=== PATIENT | male | born 1950 | race Hispanic/Latino ===

== ENCOUNTER 2019-12-07 08:57 | Inpatient (IN) | payer OTHER, MEDICARE ==
[~2019-12-07] VITALS: Ht 157.5 cm; Wt 90.1 kg
[2019-12-07] MEDS ORDERED: TETANUS/DIPHTHERIA TOXOID [ADULT] 0.5 ML VIAL IM ONE (09:08)
[2019-12-07 10:16] LABS: BASOPHILS % (AUTO) 0.5 % (0.0-5.0); EOSINOPHILS % (AUTO) 2.7 % (0.0-8.0); HEMATOCRIT 39.3 % (42-54); LYMPHOCYTES % (AUTO) 11.7 % (21.0-51.0); MEAN CORPUSCULAR HEMOGLOBIN 31.1 pg (27.0-33.0); MEAN CORPUSCULAR HGB CONC 34.4 g/dL (32.0-36.0); MEAN CORPUSCULAR VOLUME 90.6 fL (79-99); MONOCYTES % (AUTO) 9.1 % (3.0-13.0); NEUTROPHILS % (AUTO) 75.3 % (40.0-77.0); PLATELET COUNT (AUTO) 199 K/uL (130-400); RED BLOOD CELL COUNT(AUTO) 4.34 MIL/uL (4.50-6.20); RED CELL DISTRIBUTION WIDTH 13.2 % (11.0-15.5); WHITE BLOOD COUNT (AUTO) 9.4 K/uL (4.8-10.8)
[2019-12-07 10:23] LABS: CREATININE 0.7 mg/dL (0.5-1.5); CRP QUANTITATIVE 38.5 mg/L (0.00-9.0); POTASSIUM 3.8 mmol/L (3.5-5.1)
[2019-12-07] MEDS ORDERED: CLINDAMYCIN 600 MG/D5% WATER 50 ML IV ONE ×2 (10:31→16:57)
[2019-12-07] MEDS ORDERED: CEFEPIME HCL 1 GM VIAL ONE (10:31)
[2019-12-07] MEDS ORDERED: SODIUM CHLORIDE 0.9% 50 ML IV ONE (10:32)
[2019-12-07] MEDS ORDERED: ONDANSETRON HCL 4 MG/2 ML VIAL IVP PRN (12:15)
[2019-12-07] MEDS: CEFEPIME HCL 2 GM VIAL IVP SCH (12:15)
[2019-12-07] MEDS ORDERED: DEXTROSE 50%-WATER 50 ML DISP.SYRIN IV PRN (12:15)
[2019-12-07] MEDS ORDERED: ACETAMINOPHEN 325 MG TAB PO PRN (12:15)
[2019-12-07] MEDS ORDERED: GLUCAGON 1MG KIT 1 MG ML IM PRN (12:15)
[2019-12-07 12:51] LABS: HEMOGLOBIN A1C 5.5 % (4.0-6.0)
[2019-12-07] MEDS: CLINDAMYCIN 600 MG/D5% WATER 50 ML IV SCH (18:15)
[2019-12-07] MEDS: INSULIN HUMULIN R 100 UNIT/ML 3ML SQ SCH (21:00)
[2019-12-07 22:00] VITALS: BP 115/59
--- NOTE | 2019-12-07 22:00 | NUR ---
Paged Dr HORTON to clarify time for I and D tomorrow.He states he will come in am to see pt first and prob around 9 or 10 am.Pricing Director Korin Lindquist rn made aware.
--- NOTE | 2019-12-07 23:53 | NUR ---
JODI saha DOCK PUMPER,pt c/o pain to his rt foot.
[2019-12-08] VITALS (18 sets, daily range): BP systolic 94–153; BP diastolic 48–73
[2019-12-08] MEDS: CLINDAMYCIN 600 MG/D5% WATER 50 ML IV SCH ×3 (00:38→12:09)
[2019-12-08] MEDS: CEFEPIME HCL 2 GM VIAL IVP SCH ×2 (00:38→21:22)
--- NOTE | 2019-12-08 00:54 | NUR ---
FF-UP Pt resting in bed,denies pain this time.
[2019-12-08 03:58] LABS: BASOPHILS % (AUTO) 0.5 % (0.0-5.0); EOSINOPHILS % (AUTO) 2.4 % (0.0-8.0); LYMPHOCYTES % (AUTO) 13.8 % (21.0-51.0); MEAN CORPUSCULAR HEMOGLOBIN 30.5 pg (27.0-33.0); MEAN CORPUSCULAR HGB CONC 33.6 g/dL (32.0-36.0); MEAN CORPUSCULAR VOLUME 90.7 fL (79-99); MONOCYTES % (AUTO) 8.5 % (3.0-13.0); NEUTROPHILS % (AUTO) 74.3 % (40.0-77.0); PLATELET COUNT (AUTO) 187 K/uL (130-400); RED CELL DISTRIBUTION WIDTH 13.3 % (11.0-15.5); WHITE BLOOD COUNT (AUTO) 8.6 K/uL (4.8-10.8)
[2019-12-08 04:13] LABS: ALBUMIN 3.4 g/dL (3.5-5.0); BILIRUBIN,TOTAL 0.7 mg/dL (0.2-1.0); CREATININE 0.7 mg/dL (0.5-1.5); TOTAL PROTEIN, SERUM 6.7 g/dL (6.0-8.3)
[2019-12-08] MEDS: INSULIN HUMULIN R 100 UNIT/ML 3ML SQ SCH ×2 (05:22→10:43)
[2019-12-08] MEDS ORDERED: SODIUM CHLORIDE 0.9% 1000ML 1,000 ML IV ONE (08:20)
[2019-12-08] MEDS ORDERED: MIDAZOLAM HCL 1 MG/ML 2ML VIAL ONE (08:37)
[2019-12-08] MEDS ORDERED: FENTANYL CITRATE PF 50 MCG/1 ML 2ML VIAL ONE (08:38)
[2019-12-08] MEDS ORDERED: ONDANSETRON HCL 4 MG/2 ML VIAL ONE (08:38)
[2019-12-08] MEDS ORDERED: PROPOFOL 10 MG/ML 20ML VIAL IV ONE (08:38)
[2019-12-08] MEDS ORDERED: BUPIVACAINE/PF 0.5% 10ML VIAL ONE (08:42)
[2019-12-08] MEDS ORDERED: LIDOCAINE HCL 1% MDV 50ML VIAL ONE (08:42)
[2019-12-08] MEDS: ENOXAPARIN SODIUM 30 MG/0.3 ML SQ SCH (09:00)
--- NOTE | 2019-12-08 09:55 | NUR ---
S/P II&D REPORT RECEIVED @ [id number] PATIENT Back in room on RA, left foot dressing dry and intact and patient denies pain at this time, elevated foot of bed. I&D done by DR HORTON , REPORTED THAT PATIENT HAS ABD WITH PACKING AND STARTING TOMORROW WET AND DRY DRESSING CHANGES DAILY, EBL 5 VS ; T 97.2, P 74, R 23, B/P 101/52 O2 SAT 95% ON RA WILL CONTINUE TO MONITOR.
--- NOTE | 2019-12-08 11:00 | NUR ---
PHONE NUMBER ON FACE SHEET NOT IN SERVICE, CM TO FOLLOW FOR IA
--- NOTE | 2019-12-08 11:17 | NUR ---
USES CPAP AT HOME CALLING BROTHER TO BRING IN HIS Addendum: 12/08/19 at 1117 by SHERON SETH RN RN Amended: Links added.
[2019-12-08] MEDS ORDERED: VANCOMYCIN PROTOCOL PER PHARMACY IV SCH (12:45)
[2019-12-08] MEDS: KETOROLAC TROMETHAMINE 15MG/ML IV PRN ×2 (14:04→21:29)
[2019-12-08] MEDS ORDERED: COMPOUND IV REFRIGERATED 1 EACH IVSOLN MISC PRN (14:15)
[2019-12-08] MEDS ORDERED: VANCOMYCIN 2 GM in SODIUM CHLORIDE 0.9% 500ML 500 ML IV ONE (15:00)
--- NOTE | 2019-12-08 16:25 | NUR ---
NUTRITION EDUCATION Pt denies need for Diabetes Nutrition education secondary to it being provided at the [facility]. Pt agrees to receive nutrition handouts. DAVION placed handouts in Pt chart. Spoke with Pt via phone. DAVION encouraged patient to notify as questions or concerns arise. Pt verbalized understanding. Addendum: 12/08/19 at [address] RD Amended: Links added.
--- NOTE | 2019-12-08 16:28 | NUR ---
RD NOTIFICATION Pt admitted with Cellulitis to R-Foot. Pt tolerating 75gm CCD, fair to good PO intake at 75%-100% as per Pt. Pt denies any GI distress or food allergies. Pt with Obesity Class II. Monitored labs: CRP 38.50, Alb 3.4. Pt assessed for nutrition education. Recommend continue 75gm CCD Recommend Donal BID, 500mg Vitamin C (BID) secondary to cellulitis. RD to continue to monitor. Please notify as additional nutrition concerns arise. Thank you.
[2019-12-09] VITALS (7 sets, daily range): BP systolic 95–119; BP diastolic 58–74
[2019-12-09 05:36] LABS: BASOPHILS % (AUTO) 0.4 % (0.0-5.0); EOSINOPHILS % (AUTO) 2.7 % (0.0-8.0); HEMATOCRIT 38.2 % (42-54); LYMPHOCYTES % (AUTO) 14.7 % (21.0-51.0); MEAN CORPUSCULAR HEMOGLOBIN 30.3 pg (27.0-33.0); MEAN CORPUSCULAR HGB CONC 33.2 g/dL (32.0-36.0); MEAN CORPUSCULAR VOLUME 91.2 fL (79-99); MONOCYTES % (AUTO) 7.8 % (3.0-13.0); PLATELET COUNT (AUTO) 210 K/uL (130-400); RED BLOOD CELL COUNT(AUTO) 4.19 MIL/uL (4.50-6.20); RED CELL DISTRIBUTION WIDTH 13.3 % (11.0-15.5); WHITE BLOOD COUNT (AUTO) 7.4 K/uL (4.8-10.8)
[2019-12-09] MEDS: VANCOMYCIN 1.25 GM in SODIUM CHLORIDE 0.9% 250 ML IV SCH ×2 (05:44→18:03)
[2019-12-09 05:57] LABS: CREATININE 0.7 mg/dL (0.5-1.5)
[2019-12-09] MEDS: CEFEPIME HCL 2 GM VIAL IVP SCH ×2 (08:50→21:35)
[2019-12-09] MEDS: ENOXAPARIN SODIUM 30 MG/0.3 ML SQ SCH (09:04)
[2019-12-09] MEDS ORDERED: HYDROCODONE/ACETAMINOPHEN 5/325 MG TAB PO PRN (10:00)
[2019-12-09] MEDS: MORPHINE SULFATE 2 MG/ML 1ML SYG IVP PRN ×2 (11:13→17:34)
--- NOTE | 2019-12-09 13:00 | NUR ---
DCP CM met with pt discussed dc plans. Pt is independent prior to admission, lives at home alone, brother and sister lives close by. Pt has a rolling walker, walker w/wheels, cane, shower chair, cpap. Denies any other equipments/services. Feels safe to go back home, brother and sister able to assist with transportation and needs as necessary. Discussed MD recommendations for LTAC as pt will need wound care as well as bx iv and PT. PT at this time declined, verbalized would like to speak to brother and sister first, per pt will call CM if he changes his mind. Pt given CM # . DC plan to home vs LTAC. CM to continue to follow up. Addendum: 12/09/19 at 1607 by MELINDA RIOS LVN CM Amended: Links added.
[2019-12-10 03:51] VITALS: BP 108/66
[2019-12-10 05:08] LABS: BASOPHILS % (AUTO) 0.7 % (0.0-5.0); HEMATOCRIT 41.8 % (42-54); LYMPHOCYTES % (AUTO) 17.6 % (21.0-51.0); MEAN CORPUSCULAR HEMOGLOBIN 30.9 pg (27.0-33.0); MEAN CORPUSCULAR HGB CONC 34.2 g/dL (32.0-36.0); MEAN CORPUSCULAR VOLUME 90.3 fL (79-99); MONOCYTES % (AUTO) 8.2 % (3.0-13.0); NEUTROPHILS % (AUTO) 68.1 % (40.0-77.0); PLATELET COUNT (AUTO) 208 K/uL (130-400); RED BLOOD CELL COUNT(AUTO) 4.63 MIL/uL (4.50-6.20); RED CELL DISTRIBUTION WIDTH 13.4 % (11.0-15.5); WHITE BLOOD COUNT (AUTO) 5.6 K/uL (4.8-10.8)
[2019-12-10 05:13] LABS: CREATININE 0.6 mg/dL (0.5-1.5); POTASSIUM 3.8 mmol/L (3.5-5.1)
[2019-12-10] MEDS: VANCOMYCIN 1.25 GM in SODIUM CHLORIDE 0.9% 250 ML IV SCH ×3 (05:50→22:00)
[2019-12-10 08:00] VITALS: BP 106/68
[2019-12-10] MEDS: ENOXAPARIN SODIUM 30 MG/0.3 ML SQ SCH (09:37)
[2019-12-10] MEDS: CEFEPIME HCL 2 GM VIAL IVP SCH ×2 (09:37→21:19)
--- NOTE | 2019-12-10 11:38 | NUR ---
cm note spoke to pt and states is in agreement for [facility] referral, states he will update his family on plan for [facility]. choice letter obtained, and referral made to [facility], spoke to Chitra Alfaro [facility] and [facility] will evaluate pt and let cm know of outcome.
[2019-12-10 12:00] VITALS: BP 115/71
[2019-12-10 16:00] VITALS: BP 105/68
[2019-12-10 20:00] VITALS: BP 137/81
--- NOTE | 2019-12-10 20:00 | NUR ---
physical assessment performed at 2000
[2019-12-10] MEDS: KETOROLAC TROMETHAMINE 15MG/ML IV PRN (21:19)
[2019-12-11] VITALS (7 sets, daily range): BP systolic 110–126; BP diastolic 65–78
[2019-12-11 04:43] LABS: BASOPHILS % (AUTO) 0.6 % (0.0-5.0); EOSINOPHILS % (AUTO) 5.5 % (0.0-8.0); HEMATOCRIT 37.9 % (42-54); LYMPHOCYTES % (AUTO) 17.5 % (21.0-51.0); MEAN CORPUSCULAR HEMOGLOBIN 30.6 pg (27.0-33.0); MEAN CORPUSCULAR HGB CONC 33.8 g/dL (32.0-36.0); MEAN CORPUSCULAR VOLUME 90.7 fL (79-99); MONOCYTES % (AUTO) 9.5 % (3.0-13.0); NEUTROPHILS % (AUTO) 66.4 % (40.0-77.0); PLATELET COUNT (AUTO) 234 K/uL (130-400); RED BLOOD CELL COUNT(AUTO) 4.18 MIL/uL (4.50-6.20); RED CELL DISTRIBUTION WIDTH 13.2 % (11.0-15.5); WHITE BLOOD COUNT (AUTO) 6.4 K/uL (4.8-10.8)
[2019-12-11 05:07] LABS: ALBUMIN 3.2 g/dL (3.5-5.0); BILIRUBIN,TOTAL 0.6 mg/dL (0.2-1.0); CREATININE 0.7 mg/dL (0.5-1.5); POTASSIUM 3.7 mmol/L (3.5-5.1); TOTAL PROTEIN, SERUM 6.5 g/dL (6.0-8.3)
[2019-12-11] MEDS: KETOROLAC TROMETHAMINE 15MG/ML IV PRN ×2 (06:25→21:32)
[2019-12-11] MEDS: VANCOMYCIN 1.25 GM in SODIUM CHLORIDE 0.9% 250 ML IV SCH ×2 (06:25→15:52)
--- NOTE | 2019-12-11 06:53 | NUR ---
dressing change done as md ordered surgical site with no obvious signs of infection no drainage noted, no foul smell pt tolerated procedure well
[2019-12-11] MEDS: CEFEPIME HCL 2 GM VIAL IVP SCH ×2 (08:38→21:33)
[2019-12-11] MEDS: ENOXAPARIN SODIUM 30 MG/0.3 ML SQ SCH (08:38)
[2019-12-11] MEDS: MORPHINE SULFATE 2 MG/ML 1ML SYG IVP PRN ×2 (15:59→16:01)
[2019-12-11] MEDS: VANCOMYCIN 1.5 GM in SODIUM CHLORIDE 0.9% 250 ML IV SCH (21:33)
[2019-12-12 04:00] VITALS: BP 118/71
[2019-12-12 04:11] LABS: BASOPHILS % (AUTO) 0.7 % (0.0-5.0); EOSINOPHILS % (AUTO) 4.1 % (0.0-8.0); HEMATOCRIT 37.5 % (42-54); LYMPHOCYTES % (AUTO) 17.6 % (21.0-51.0); MEAN CORPUSCULAR HEMOGLOBIN 30.7 pg (27.0-33.0); MEAN CORPUSCULAR HGB CONC 34.4 g/dL (32.0-36.0); MEAN CORPUSCULAR VOLUME 89.3 fL (79-99); MONOCYTES % (AUTO) 8.8 % (3.0-13.0); NEUTROPHILS % (AUTO) 68.3 % (40.0-77.0); PLATELET COUNT (AUTO) 226 K/uL (130-400); RED CELL DISTRIBUTION WIDTH 13.2 % (11.0-15.5); WHITE BLOOD COUNT (AUTO) 6.1 K/uL (4.8-10.8)
[2019-12-12 04:28] LABS: CREATININE 0.6 mg/dL (0.5-1.5); POTASSIUM 3.6 mmol/L (3.5-5.1)
[2019-12-12] MEDS ORDERED: LACTULOSE 20 GM/30 ML UDCUP ONE (06:42)
--- NOTE | 2019-12-12 06:43 | NUR ---
DRESSING DONE MD ORDERED
[2019-12-12] MEDS: KETOROLAC TROMETHAMINE 15MG/ML IV PRN (06:44)
[2019-12-12] MEDS: VANCOMYCIN 1.5 GM in SODIUM CHLORIDE 0.9% 250 ML IV SCH ×3 (06:44→21:45)
[2019-12-12] MEDS ORDERED: LACTULOSE 20 GM/30 ML UDCUP PO SCH (06:45)
[2019-12-12 08:00] VITALS: BP 113/83
[2019-12-12] MEDS: CEFEPIME HCL 2 GM VIAL IVP SCH ×2 (09:31→21:45)
[2019-12-12] MEDS: ENOXAPARIN SODIUM 30 MG/0.3 ML SQ SCH (09:32)
[2019-12-12 12:00] VITALS: BP 113/64
[2019-12-12 16:00] VITALS: BP 114/67
[2019-12-12 20:00] VITALS: BP 121/62
[2019-12-13] VITALS (7 sets, daily range): BP systolic 118–137; BP diastolic 57–79
[2019-12-13 04:50] LABS: BASOPHILS % (AUTO) 0.6 % (0.0-5.0); EOSINOPHILS % (AUTO) 3.5 % (0.0-8.0); HEMATOCRIT 38.3 % (42-54); LYMPHOCYTES % (AUTO) 12.3 % (21.0-51.0); MEAN CORPUSCULAR HEMOGLOBIN 30.4 pg (27.0-33.0); MEAN CORPUSCULAR HGB CONC 33.7 g/dL (32.0-36.0); MEAN CORPUSCULAR VOLUME 90.1 fL (79-99); NEUTROPHILS % (AUTO) 75.2 % (40.0-77.0); PLATELET COUNT (AUTO) 232 K/uL (130-400); RED BLOOD CELL COUNT(AUTO) 4.25 MIL/uL (4.50-6.20); RED CELL DISTRIBUTION WIDTH 13.2 % (11.0-15.5); WHITE BLOOD COUNT (AUTO) 7.8 K/uL (4.8-10.8)
[2019-12-13 05:05] LABS: CREATININE 0.7 mg/dL (0.5-1.5); POTASSIUM 3.6 mmol/L (3.5-5.1)
--- NOTE | 2019-12-13 06:42 | NUR ---
DRESSING CHANGE DONE MD ORDERED
--- NOTE | 2019-12-13 06:43 | NUR ---
PHARMACY AWARE OF THIAGOO THROUGH
[2019-12-13] MEDS: MORPHINE SULFATE 2 MG/ML 1ML SYG IVP PRN (06:50)
[2019-12-13] MEDS ORDERED: IBUPROFEN 400 MG TABLET PO PRN (08:00)
[2019-12-13] MEDS: VANCOMYCIN 1.5 GM in SODIUM CHLORIDE 0.9% 250 ML IV SCH ×2 (10:00→17:00)
[2019-12-13] MEDS: CEFEPIME HCL 2 GM VIAL IVP SCH ×2 (10:06→21:38)
[2019-12-13] MEDS: ENOXAPARIN SODIUM 30 MG/0.3 ML SQ SCH (10:06)
[2019-12-14] MEDS: VANCOMYCIN 1.5 GM in SODIUM CHLORIDE 0.9% 250 ML IV SCH ×2 (01:01→21:01)
[2019-12-14 04:00] VITALS: BP 106/65
[2019-12-14] MEDS: MORPHINE SULFATE 2 MG/ML 1ML SYG IVP PRN (07:08)
--- NOTE | 2019-12-14 07:17 | NUR ---
DRESSING CHANGE TO RIGHT FOOT DONE PER MD ORDERS. PT TOLERATED WELL. NO S/S OF INFECTION.
[2019-12-14 07:30] VITALS: BP 109/73
--- NOTE | 2019-12-14 08:30 | NUR ---
PT AAO X 3 REVIEW PLAN OF CARE / PT DRSG TO HIS RIGHT FOOT. IN PLACE PER REPORT PT DRSG WAS CHANGED . PER DR. HORTON DRSG ORDERS ASSESSMENT PT . STATED THAT HIS RT UPPER ARM . WAS HURTING PER ASESSMENT PT STATED THAT HE HAD A IV. TO HIS LEFT UPPER ARM AND WAS TAKEN OFF, AND RESTART ONE TO HIS RT FOREARM . SITE TO HIS LEFT UPPER ARM WAS HOT . HAD A HARD SPOT , AND REDNESS TO SITE , PT HAS A SM DRSG OVER SITE. REVIEW . ASSESS HIS LEFT RADIAL PULSE STRONG WITH GOOD CAPILLARIES REFILLS NOTED . WILL DIRECT ASSESSMENT TO DR. GOLD FOR THE HOSPTIALIST .
[2019-12-14] MEDS: CEFEPIME HCL 2 GM VIAL IVP SCH ×2 (09:19→20:58)
[2019-12-14] MEDS: ENOXAPARIN SODIUM 30 MG/0.3 ML SQ SCH (09:24)
--- NOTE | 2019-12-14 10:30 | NUR ---
HOSPITALIST . Martin. CALLED AND UPDATE OF PT . LEFT ARM. SITE WILLIAN SALAS . RESOLUTION SPECIALIST. WILL COME TO ASSESS PT . LEFT ARMS AND PLACE ORDERS TO FOLLOW . CARE.
[2019-12-14 11:00] VITALS: BP 118/65
[2019-12-14] MEDS ORDERED: VANCOMYCIN 1.5 GM in SODIUM CHLORIDE 0.9% 250 ML IV SCH (11:00)
--- NOTE | 2019-12-14 15:30 | NUR ---
ULTRA SOUND OF THE LEFT ARM, I PENDING . AND DOPPLER STUDY WAS ALSO ORDER TO HIS LEFT ARM.`
[2019-12-14 16:00] VITALS: BP 109/70
--- NOTE | 2019-12-14 16:51 | NUR ---
WAITING ON AUTH FROM [place] FOR [facility] Addendum: 12/14/19 at 1652 by VAUGHN CHAMBERS RN CM Amended: Links added.
[2019-12-14 20:00] VITALS: BP 118/70
[2019-12-14 23:38] VITALS: BP 155/61
[2019-12-15 04:00] VITALS: BP 136/70
[2019-12-15] MEDS: VANCOMYCIN 1.5 GM in SODIUM CHLORIDE 0.9% 250 ML IV SCH ×3 (05:01→21:58)
--- NOTE | 2019-12-15 06:51 | NUR ---
PIV TO PATRICIA 22 G INFILTRATED. PIV REMOVED WITH CATHETER INTACT. NEW 20G PIV INSERTED TO RIGHT HAND. PT TOLERATED WELL.
--- NOTE | 2019-12-15 06:52 | NUR ---
DRESSING TO RIGHT FOOT [place] PER MD ORDERS.
[2019-12-15 07:30] VITALS: BP 111/56
[2019-12-15] MEDS: CEFEPIME HCL 2 GM VIAL IVP SCH ×2 (11:10→21:58)
[2019-12-15] MEDS: ENOXAPARIN SODIUM 30 MG/0.3 ML SQ SCH (11:11)
[2019-12-15 11:14] VITALS: BP 115/69
[2019-12-15] MEDS: MORPHINE SULFATE 2 MG/ML 1ML SYG IVP PRN (12:28)
[2019-12-15 16:00] VITALS: BP 101/52
[2019-12-15 21:08] VITALS: BP 113/61
[2019-12-16 00:06] VITALS: BP 144/90
[2019-12-16] MEDS: VANCOMYCIN 1.5 GM in SODIUM CHLORIDE 0.9% 250 ML IV SCH ×3 (04:00→21:44)
[2019-12-16 04:06] VITALS: BP 123/67
[2019-12-16 04:58] LABS: BASOPHILS % (AUTO) 0.6 % (0.0-5.0); EOSINOPHILS % (AUTO) 3.3 % (0.0-8.0); HEMATOCRIT 38.1 % (42-54); LYMPHOCYTES % (AUTO) 15.1 % (21.0-51.0); MEAN CORPUSCULAR HEMOGLOBIN 30.4 pg (27.0-33.0); MEAN CORPUSCULAR HGB CONC 33.9 g/dL (32.0-36.0); MEAN CORPUSCULAR VOLUME 89.9 fL (79-99); MONOCYTES % (AUTO) 8.3 % (3.0-13.0); NEUTROPHILS % (AUTO) 72.1 % (40.0-77.0); PLATELET COUNT (AUTO) 248 K/uL (130-400); RED BLOOD CELL COUNT(AUTO) 4.24 MIL/uL (4.50-6.20); RED CELL DISTRIBUTION WIDTH 12.9 % (11.0-15.5); WHITE BLOOD COUNT (AUTO) 6.9 K/uL (4.8-10.8)
[2019-12-16 05:29] LABS: CREATININE 0.6 mg/dL (0.5-1.5); POTASSIUM 3.6 mmol/L (3.5-5.1)
[2019-12-16 08:00] VITALS: BP 131/77
[2019-12-16] MEDS: CEFEPIME HCL 2 GM VIAL IVP SCH ×2 (10:19→21:44)
[2019-12-16] MEDS: ENOXAPARIN SODIUM 30 MG/0.3 ML SQ SCH (10:20)
[2019-12-16 12:18] VITALS: BP 120/60
[2019-12-16 12:28] LABS: INR 0.92 (0.85-1.15)
--- NOTE | 2019-12-16 17:06 | NUR ---
WINSOME KINGSLEY. ADVISED DR. Rock Navarro STATES WILL GIVE ABX ORDERS TOMORROW NEED HOME HEALTH ORDERS. WILL CONTACT [facility] FOR ORDERS. Addendum: 12/16/19 at 1708 by VAUGHN CHAMBERS RN CM Amended: Links added.
[2019-12-16] MEDS ORDERED: FERROUS SULFATE 325 MG TABLET.DR PO SCH (17:30)
--- NOTE | 2019-12-16 17:30 | NUR ---
AT BEDSIDE WITH DR. RUSSELL, DISCUSSING D/C PLANS- HOME WITH HOME HEALTH WASH WOUND WITH NS, APPLY HYDROFERA BLUE INTO WOUND, COVER WITH STERILE GAUZE/KERLIX MAY WEIGH BEAR WITH SURGICAL SHOE SAW RIGHT FOOT PLANTAR WOUND WITH DR. HORTON, WHILE HE WAS CHANGING DRESSING. APPEARS TO BE 3 CM X1 CM X2 CM DEEP---(MEASUREMENTS ARE APPROXIMATE.) [facility] WITH ORDER FROM [facility]
[2019-12-16 18:19] VITALS: BP 122/57
[2019-12-16 19:46] VITALS: BP 124/56
[2019-12-17 00:04] VITALS: BP 111/75
[2019-12-17 04:04] VITALS: BP 101/67
[2019-12-17 04:50] LABS: BASOPHILS % (AUTO) 0.6 % (0.0-5.0); EOSINOPHILS % (AUTO) 2.9 % (0.0-8.0); HEMATOCRIT 39.4 % (42-54); MEAN CORPUSCULAR HEMOGLOBIN 30.5 pg (27.0-33.0); MEAN CORPUSCULAR HGB CONC 34.3 g/dL (32.0-36.0); MEAN CORPUSCULAR VOLUME 89.1 fL (79-99); MONOCYTES % (AUTO) 9.6 % (3.0-13.0); NEUTROPHILS % (AUTO) 69.5 % (40.0-77.0); PLATELET COUNT (AUTO) 251 K/uL (130-400); RED BLOOD CELL COUNT(AUTO) 4.42 MIL/uL (4.50-6.20); RED CELL DISTRIBUTION WIDTH 13.1 % (11.0-15.5); WHITE BLOOD COUNT (AUTO) 6.9 K/uL (4.8-10.8)
[2019-12-17 05:14] LABS: CREATININE 0.6 mg/dL (0.5-1.5); POTASSIUM 3.7 mmol/L (3.5-5.1)
[2019-12-17] MEDS: VANCOMYCIN 1.5 GM in SODIUM CHLORIDE 0.9% 250 ML IV SCH (06:04)
[2019-12-17 08:00] VITALS: BP 89/54
[2019-12-17] MEDS ORDERED: FERROUS SULFATE 325 MG TABLET.DR PO SCH (09:00)
[2019-12-17 12:00] VITALS: BP 127/86
--- NOTE | 2019-12-17 15:07 | NUR ---
DISCHARGE PLANNING- EVERYTHING SENT TO [place] FOR HOME HEALTH SET UP. CALLS X 2 TO [facility] NO ANSWER CONTACTED [facility] RE ORDER FOR FOLLOW UP- ADVISED THAT PATIENT WILL NEED TO GO TO [place] CLINIC FIRST FOR REFERRAL APPROVAL SPOKE TO PATIENT- HE WATCH DR. HORTON DO THE WOUND CARE YESTERDAY,STATES HE CAN DO IT. STATES FEELS CONFIDENT. SUPPLIES GATHERED FOR DC HOME, PLAN- DO DSG CHANGE HERE, PT WILL NEED TO DO DRESSING ON FRIDAY, THEN FRIDAY OR HOME HEALTH WITH BE AUTHORIZED. ALSO NEED TO MAKE APPOINTMENT W [place] [facility] FOR EARLY NEXT WEEK. VOUCHER FOR PO MEDS TO BE GIVEN TO PATIENT Addendum: 12/17/19 at 1731 by VAUGHN CHAMBERS RN CM Amended: Links added.
[2019-12-17 16:00] VITALS: BP 127/85
[2019-12-17] MEDS ORDERED: IBUP-2076 PO (16:39)
[2019-12-17] MEDS ORDERED: FERR324T4 PO (16:39)
--- NOTE | 2019-12-17 16:39 | NUR ---
RD FOLLOW UP Pt continues to tolerate diet order. No report of GI distress. PO intake at 100%. Nutrition education previously provided. Pt with IV vanco. Right foot ulcer requiring additional protein. Recommend Donal BID, 1000mg Vitamin C (QD), 220mg Zinc (QD) for wound healing support. RD to continue to monitor. Please notify as additional nutrition concerns arise. Thank you.
--- NOTE | 2019-12-17 16:59 | NUR ---
discharge instructions discussed with pt voices understanding understands to call [facility] and make appointment for follow [facility] Friday
== END 2019-12-17 18:52 | disposition home health service (06) | DRG 580 ==
LOC: EDH 08:57 → EDHIP 12:01 → OBSVTOIN 12:01 → 3DH 22:08
PROVIDERS: ADMIT Hospitalist; ATTEND Hospitalist
PROC: 3E0234Z Introduction of Serum, Toxoid and Vaccine into Muscle, Percutaneous Approach (ICD-10-PCS; 2019-12-07)
PROC: 0J9Q0ZZ Drainage of Right Foot Subcutaneous Tissue and Fascia, Open Approach (ICD-10-PCS; principal; 2019-12-08 08:40)
PROC: 5A09357 Assistance with Respiratory Ventilation, Less than 24 Consecutive Hours, Continuous Positive Airway Pressure (ICD-10-PCS; 2019-12-09)
PROC: 5A09357 Assistance with Respiratory Ventilation, Less than 24 Consecutive Hours, Continuous Positive Airway Pressure (ICD-10-PCS; 2019-12-10)
PROC: 5A09357 Assistance with Respiratory Ventilation, Less than 24 Consecutive Hours, Continuous Positive Airway Pressure (ICD-10-PCS; 2019-12-12)
PROC: 5A09357 Assistance with Respiratory Ventilation, Less than 24 Consecutive Hours, Continuous Positive Airway Pressure (ICD-10-PCS; 2019-12-13)
PROC: 5A09357 Assistance with Respiratory Ventilation, Less than 24 Consecutive Hours, Continuous Positive Airway Pressure (ICD-10-PCS; 2019-12-15)
PROC: 5A09357 Assistance with Respiratory Ventilation, Less than 24 Consecutive Hours, Continuous Positive Airway Pressure (ICD-10-PCS; 2019-12-16)
PROC: 5A09357 Assistance with Respiratory Ventilation, Less than 24 Consecutive Hours, Continuous Positive Airway Pressure (ICD-10-PCS; 2019-12-17)
DX: S91.331A Puncture wound without foreign body, right foot, initial encounter (principal); L03.115 Cellulitis of right lower limb; L02.611 Cutaneous abscess of right foot; E11.621 Type 2 diabetes mellitus with foot ulcer; I10 Essential (primary) hypertension; D64.9 Anemia, unspecified; G47.30 Sleep apnea, unspecified; L97.519 Non-pressure chronic ulcer of other part of right foot with unspecified severity; R59.0 Localized enlarged lymph nodes; E03.9 Hypothyroidism, unspecified; R53.81 Other malaise; E66.9 Obesity, unspecified; Z68.36 Body mass index [BMI] 36.0-36.9, adult; W45.0XXA Nail entering through skin, initial encounter; Y93.01 Activity, walking, marching and hiking; Y92.098 Other place in other non-institutional residence as the place of occurrence of the external cause; Y99.8 Other external cause status; Z79.4 Long term (current) use of insulin; Z88.0 Allergy status to penicillin; Z23 Encounter for immunization; Z83.3 Family history of diabetes mellitus
CPT/HCPCS: 36415; 73630; 80048; 80053; 80202; 82948; 83036; 85025; 85610; 86140; 87070; 87076; 87205; 90714; 93971; G0378; J0692; J1650; J1885; J2250; J2405; J2704; J3010; J3370; J3490; J7030; J7040; J7050

== ENCOUNTER → 2019-12-29 | Outpatient (CLI) | payer OTHER ==
[~2019-12-29] MED LIST: FERR324T4 PO; IBUP-2076 PO
== END | disposition home or self-care (01) ==
LOC: WHH 10:30
PROVIDERS: ATTEND Podiatrist Foot & Ankle Surgery
DX: E11.621 Type 2 diabetes mellitus with foot ulcer (principal); L97.512 Non-pressure chronic ulcer of other part of right foot with fat layer exposed; E11.51 Type 2 diabetes mellitus with diabetic peripheral angiopathy without gangrene; E11.42 Type 2 diabetes mellitus with diabetic polyneuropathy; I10 Essential (primary) hypertension; E03.9 Hypothyroidism, unspecified; E66.9 Obesity, unspecified; G47.30 Sleep apnea, unspecified; M54.2 Cervicalgia; M19.90 Unspecified osteoarthritis, unspecified site; D64.9 Anemia, unspecified; Z88.0 Allergy status to penicillin; Z79.4 Long term (current) use of insulin
CPT/HCPCS: A6209; G0463

== ENCOUNTER → 2020-01-19 | Outpatient (CLI) | payer OTHER ==
[~2020-01-19] MED LIST changes: +LIDOCAINE HCL 2% JELLY 5 ML TP ONE
== END | disposition home or self-care (01) ==
LOC: WHH 11:00
PROVIDERS: ATTEND Podiatrist Foot & Ankle Surgery
DX: T81.89XD Other complications of procedures, not elsewhere classified, subsequent encounter (principal); E11.621 Type 2 diabetes mellitus with foot ulcer; L97.512 Non-pressure chronic ulcer of other part of right foot with fat layer exposed; E11.51 Type 2 diabetes mellitus with diabetic peripheral angiopathy without gangrene; E11.42 Type 2 diabetes mellitus with diabetic polyneuropathy; I10 Essential (primary) hypertension; E03.9 Hypothyroidism, unspecified; E66.9 Obesity, unspecified; G47.30 Sleep apnea, unspecified; M54.2 Cervicalgia; M19.90 Unspecified osteoarthritis, unspecified site; D64.9 Anemia, unspecified; Z88.0 Allergy status to penicillin; Z79.4 Long term (current) use of insulin; Y83.8 Other surgical procedures as the cause of abnormal reaction of the patient, or of later complication, without mention of misadventure at the time of the procedure
CPT/HCPCS: 11042; A6207

== ENCOUNTER → 2020-01-26 | Outpatient (CLI) | payer OTHER ==
[~2020-01-26] MED LIST changes: -LIDOCAINE HCL 2% JELLY 5 ML TP ONE
== END | disposition home or self-care (01) ==
LOC: WHH 10:45
PROVIDERS: ATTEND Podiatrist Foot & Ankle Surgery
DX: T81.89XD Other complications of procedures, not elsewhere classified, subsequent encounter (principal); E11.621 Type 2 diabetes mellitus with foot ulcer; L97.512 Non-pressure chronic ulcer of other part of right foot with fat layer exposed; E11.51 Type 2 diabetes mellitus with diabetic peripheral angiopathy without gangrene; E11.42 Type 2 diabetes mellitus with diabetic polyneuropathy; I10 Essential (primary) hypertension; E03.9 Hypothyroidism, unspecified; E66.9 Obesity, unspecified; G47.30 Sleep apnea, unspecified; M54.2 Cervicalgia; M19.90 Unspecified osteoarthritis, unspecified site; D64.9 Anemia, unspecified; Z88.0 Allergy status to penicillin; Z79.4 Long term (current) use of insulin; Y83.8 Other surgical procedures as the cause of abnormal reaction of the patient, or of later complication, without mention of misadventure at the time of the procedure
CPT/HCPCS: G0463